=== PATIENT | female | born 1975 | race Caucasian/White ===

== ENCOUNTER 2018-06-10 15:36 | Emergency (ER) | payer SELFPAY ==
--- NOTE | 2018-06-10 15:47 | ED Physician Documentation ---
General Adult - HISTORIAN Historian: patient - HPI Stated Complaint: cough, vomiting Chief Complaint: General Adult Onset: days ago Timing: still present Severity: moderate Further Comments: yes (Pt is a 42 yo female with fever, cough, body aches x 4 days. Pt had a sore throat earlier in her illness. Pt has hx asthma.) - ROS CONST: chills, other (malaise) EYES/ENT: sore throat CVS/RESP: cough (harsh cough) GI/: vomiting MS/SKIN/LYMPH: none - PAST HX Past History: other (Rheumatoid Arthritis, asthma) Surgeries/Procedures: BTL, other (appendectomy) - SOCIAL HX Smoking History: cigarettes - FAMILY HX Family History: No - REVIEWED ASSESSMENTS Nursing Assessment Reviewed: Yes Vitals Reviewed: Yes Progress - Progress Progress: CXR: neg Influenza A & B: neg Rapid Strep: neg Solu-medrol 125 mg IM Azithromycin 500 mg po in ER Rx Azithromycin 250 mg. Take one tablet by mouth once daily for 5 days. Rx Prednisone 50 mg. Take one by mouth once daily for 5 days. Start on 06-11-18. General Adult Physical Exam - PHYSICAL EXAM GENERAL APPEARANCE: mild distress EENT: pharynx normal NECK: normal inspection, supple RESPIRATORY: no resp distress, chest non-tender, other (harsh cough) CVS: reg rate & rhythm, heart sounds normal ABDOMEN: soft, no organomegaly, normal bowel sounds BACK: normal inspection, no CVA tenderness SKIN: warm/dry, normal color EXTREMITIES: non-tender, normal range of motion, no evidence of injury NEURO: oriented X3 Discharge Clincal Impression: URI (upper respiratory infection) Qualifiers: URI type: unspecified URI Qualified Code(s): J06.9 - Acute upper respiratory infection, unspecified Referrals: Primary Doctor,No [Primary Care Provider] - Condition: Stable Disposition: 01 HOME, SELF-CARE Decision to Admit: NO Decision Time: 17:13
[2018-06-10] MEDS ORDERED: AZITHROMYCIN 250 MG TABLET PO ONE (17:01)
[2018-06-10] MEDS ORDERED: methylPREDNISolone SOD SUCC 125 MG/2 ML VIAL IM ONE (17:01)
[2018-06-10 17:28] VITALS: BP 112/76
--- NOTE | 2018-06-10 19:09 | Diagnostic Imaging Report ---
HELEN MILIAN [facility] [id number] [facility] [address] [place] [address]. [id number] Report Submission Date: Jun 10, 2018 4:43:45 PM STABLE HELPER Patient Study Name: MK KIMBLE Date: Jun 10, 2018 4:14:44 PM STABLE HELPER Modality Type: DX Gender: F Description: CHEST : 79 Institution: [facility] Physician: HELEN MILIAN Pa and lateral chest Clinical history : Coughing Comparison: None Technique pa and lateral upright Findings: The lung nolan are clear. I see no hilar or mediastinal mass. There is no pleural effusion or lesion of the bony thorax except for thoracic spondylosis Impression: No acute pulmonary disease Electronically signed on Jun 10, 2018 4:43:45 PM STABLE HELPER by: Soren [email or web address]
== END 2018-06-10 17:26 | disposition home or self-care (01) ==
LOC: ED 15:36
DX: J06.9 Acute upper respiratory infection, unspecified (principal); Z72.0 Tobacco use
CPT/HCPCS: 71046; 87070; 87400; 87880; 96372; 99282; 99284; J2930